=== PATIENT | female | born 1985 | race Caucasian/White ===

== ENCOUNTER 2021-07-11 05:44 | Emergency (ER) | payer BC, SELFPAY ==
[2021-07-11 05:51] VITALS: BP 128/68; PULSE 85; RESP 20; TEMP 36.4; O2SAT 100
--- NOTE | 2021-07-11 05:53 | ED.ALLEREA ---
HPI - Allergic Reaction General Chief complaint: Allergic Reaction Stated complaint: ALL RX Time Seen by Provider: 07/11/21 05:47 Source: patient History of Present Illness HPI narrative: 36-year-old female with history of allergies presents to the emergency department for evaluation after having an allergy attack with associated facial swelling. Patient [place] from out of town and is currently being worked up for allergies by her kiln pusher. She states that they are unsure of what is the underlying cause of her allergies. Patient states that an hour ago she developed some swelling of her left eye and feels that she is having difficulty swallowing. Patient did take a dose of Benadryl and famotidine but did not use her EpiPen. Related Data Allergies Allergy/AdvReac Type Severity Reaction Status Date / Time No Known Allergies Allergy Verified 07/11/21 05:55 Review of Systems Review of Systems: CONSTITUTIONAL: Denies fever, chills, or sweats. EYES: Denies visual changes, redness, or discharge. ENT: Left-sided facial swelling CARDIOVASCULAR: Denies chest pain, palpitations, or edema. RESPIRATORY: Denies cough or dyspnea. GASTROINTESTINAL: Increased difficulty swallowing GENITOURINARY: Denies dysuria or hematuria. SKIN: Denies rash or itching. MUSCULOSKELETAL: Denies back pain, joint pain, or myalgia. NEUROLOGIC: Denies headache, numbness, or weakness. Exam Narrative: APPEARANCE: Well appearing, no pain, no distress, well-nourished. HEAD: normocephalic, atraumatic. EYES: Left-sided facial swelling involving the forehead and upper eyelid.. NOSE: Normal no drainage THROAT: No swelling of tongue lips or posterior pharynx NECK: Supple. No adenopathy, no masses. RESPIRATORY: Airway patent, respirations nonlabored. Clear to auscultation bilaterally, no rales, rhonchi, wheezing. CARDIOVASCULAR: Regular rate and rhythm without murmurs rubs or gallops. ABDOMINAL: Soft, nontender, nondistended, normal bowel sounds MUSCULOSKELETAL: Moves all extremities. Strength/ROM intact, No edema, No calf tenderness. NEURO: Alert. Cranial nerves II through XII intact. Grossly intact SKIN: Warm, dry. Normal Color Course Reevaluation(s) Reevaluation #1: On reevaluation the swelling has significantly improved. Patient's swelling around her left eye has significantly improved. Patient states that she feels she is swallowing easier. Patient is in no distress. Patient will be started on prednisone. Patient states she will have close follow-up with her primary care physician Vital Signs Vital signs: Vital Signs Temperature 97.6 F 07/11/21 05:51 Pulse Rate 85 07/11/21 05:51 Respiratory Rate 20 07/11/21 05:51 Blood Pressure 128/68 07/11/21 05:51 Pulse Oximetry 100 07/11/21 05:51 Temperature 97.6 F 07/11/21 05:51 Pulse Rate 89 07/11/21 07:04 Respiratory Rate 13 07/11/21 07:04 Blood Pressure 113/61 07/11/21 07:04 Pulse Oximetry 100 07/11/21 07:04 Discharge Plan Discharge Clinical Impression: Allergic reaction Patient Disposition: Home, Self-Care Condition: Stable Instructions: Antibiotic Form, General Allergic Reaction (ED) Additional Instructions: Continue your Benadryl and famotidine as directed. Start prednisone as directed. Have close follow-up with your kiln pusher. Use your EpiPen as directed. If you have any worsening symptoms or if you have any questions or concerns and please call or return to the emergency department. Prescriptions: New prednisone 50 mg tablet 50 mg PO DAILY Qty: 5 RF: 0 Follow-up/Referrals: PHYSICIAN NOT ON STAFF,NONSTAFF [Primary Care Provider] -
[2021-07-11] MEDS: FAMOTIDINE 20 MG/2 ML VIAL IV PUSH (06:03)
[2021-07-11] MEDS: methylPREDNISolone SOD SUCC 125 MG VIAL IV PUSH (06:03)
[2021-07-11] MEDS: EPINEPHrine HCL INJ 1 MG/ML AMPUL 0.3 MG IM (06:04)
[2021-07-11] MEDS: diphenhydrAMINE HCl INJ 50 MG/ML VIAL 25 MG IV PUSH (06:04)
[2021-07-11 07:04] VITALS: BP 113/61; PULSE 89; RESP 13; O2SAT 100
== END 2021-07-11 07:05 | disposition home or self-care (01) ==
PROVIDERS: Emergency Provider Emergency Medicine
DX: T78.40XA Allergy, unspecified, initial encounter (principal)
CPT/HCPCS: 96372; 96374; 96375; 99284; J0171; J1200; J2930